=== PATIENT | male | born 1950 | race Caucasian/White ===

== ENCOUNTER 2018-08-26 13:06 | Inpatient (IN) | payer OTHER, MEDICARE ==
[2018-08-26] VITALS (12 sets, daily range): BP systolic 83–107; BP diastolic 41–69
[~2018-08-26] VITALS: Ht 180.3 cm; Wt 108.2 kg
--- NOTE | ~2018-08-26 | EKG ---
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
[~2018-08-26 13:06] MED LIST: ASPIR LOW81 MG PO; CRESTOR20 M1 PO; DILT-XR120 MG PO; ELIQUIS5 M1 PO; FUROSEMIDE40 MG PO; LOPRESSOR50 M1 PO; LORATADINE10 M3 PO; Nystatin 100,000 UNI PO; OMEPRAZOLE D/R20 MG PO; PREDNISONE10 MG PO; SOTALOL HCL80 MG PO; SYMB160 INH; VITAMIN D-32000 UNIT PO; amox-clav
[2018-08-26 13:38] LABS: BASO % 0.3 % (0.0-1.0); EOS % 0.3 % (1.0-4.0); HEMATOCRIT 43.9 % (42.0-52.0); LYMPH # 4.7 10*3/uL (1.3-4.4); LYMPH % 37.1 % (27.0-41.0); MEAN CELL VOLUME 97.6 fl (80.0-94.0); MEAN CORPUSCULAR HGB 33.3 pg (27.0-31.0); MEAN CORPUSCULAR HGB CONC 34.2 g/dl (33.0-37.0); MEAN PLATELET VOLUME 9.9 fl (9.6-12.3); MONO % 7.8 % (3.0-9.0); NEUT # 6.8 10*3/uL (2.3-7.9); NEUT % 53.6 % (47.0-73.0); PLATELET COUNT AUTOMATED 193 10*3/uL (130-400); RED CELL DISTRI WIDTH 14.8 % (0-14.5); WHITE BLOOD COUNT 12.7 10*3/uL (4.8-10.8)
[2018-08-26 13:47] LABS: ACT PARTIAL THROMBO TIME 22.7 SECONDS (20.8-31.5)
[2018-08-26 13:53] LABS: ALBUMIN 2.8 gm/dl (3.1-4.5); ALKALINE PHOSPHATASE 79 U/L (45-117); BUN 13 mg/dl (7-24); CHLORIDE 104 mmol/L (98-107); CREATININE 1.13 mg/dL (0.70-1.30); LIPASE 103 U/L (73-393); SGOT/AST 37 IU/L (3-35); SGPT/ALT 50 U/L (12-78); SODIUM 136 mmol/L (136-145); TOTAL PROTEIN 6.9 gm/dL (6.4-8.2); TROPONIN I 0.018 ng/ml (<0.045)
[2018-08-26 13:54] LABS: POTASSIUM 4.5 mmol/L (3.5-5.1)
[2018-08-26] MEDS ORDERED: VIT D3 PO (17:26)
== END 2018-08-26 21:04 | disposition short-term general hospital (02) | DRG 309 ==
LOC: ED 13:06 → EDHOLD 14:43 → 5E 14:43
PROVIDERS: Emergency Medicine
DX: I48.0 Paroxysmal atrial fibrillation (principal); D68.69 Other thrombophilia; I50.32 Chronic diastolic (congestive) heart failure; C34.92 Malignant neoplasm of unspecified part of left bronchus or lung; E44.0 Moderate protein-calorie malnutrition; E87.2 Acidosis; I25.10 Atherosclerotic heart disease of native coronary artery without angina pectoris; I11.0 Hypertensive heart disease with heart failure; E78.5 Hyperlipidemia, unspecified; E55.9 Vitamin D deficiency, unspecified; E66.9 Obesity, unspecified; D72.829 Elevated white blood cell count, unspecified; D75.89 Other specified diseases of blood and blood-forming organs; E11.65 Type 2 diabetes mellitus with hyperglycemia; K14.0 Glossitis; Z95.5 Presence of coronary angioplasty implant and graft; Z87.891 Personal history of nicotine dependence; Z82.49 Family history of ischemic heart disease and other diseases of the circulatory system; Z80.8 Family history of malignant neoplasm of other organs or systems; Z79.899 Other long term (current) drug therapy; Z68.34 Body mass index [BMI] 34.0-34.9, adult

== ENCOUNTER → 2020-07-08 | Outpatient (CLI) | payer MEDICARE ==
[~2020-07-08] MED LIST changes: +ASPIRIN ADULT L81 M1 PO; +DOCUSATE SODIU100 M2 PO; +GAS RELIEF 8080 MG PO; +KEYTRUDA100 MG/4 M IV; +METOPROLOL SUC100 M1 PO; +VIT D3 PO
== END | disposition home or self-care (01) ==
LOC: US 14:21
PROVIDERS: ATTEND Internal Medicine Cardiovascular Disease
DX: I65.23 Occlusion and stenosis of bilateral carotid arteries (principal); H57.9 Unspecified disorder of eye and adnexa

== ENCOUNTER 2021-01-10 08:57 | Inpatient (IN) | payer OTHER ==
[~2021-01-10] VITALS: Ht 177.8 cm; Wt 93.6 kg
[2021-01-10 09:09] VITALS: BP 118/76
[2021-01-10 09:26] LABS: HEMATOCRIT 33.8 % (42.0-52.0); MEAN CELL VOLUME 88.5 fl (80.0-94.0); MEAN CORPUSCULAR HGB CONC 30.5 g/dl (33.0-37.0); NUCLEATED RED BLOOD CELL 0.4 10*3/uL (0.0-0.0); NUCLEATED RED BLOOD CELL 6.7 % (0.0-0.0); PLATELET COUNT AUTOMATED 51 10*3/uL (130-400); RED BLOOD COUNT 3.82 10*6/uL (4.50-5.90); RED CELL DISTRI WIDTH 25.2 % (0-14.5); WHITE BLOOD COUNT 6.1 10*3/uL (4.8-10.8)
[2021-01-10 09:36] LABS: INTERNATIONAL NORM RATIO 1.1 (2.0-3.5)
[2021-01-10 09:41] LABS: ALBUMIN 3.2 gm/dl (3.1-4.5); ALKALINE PHOSPHATASE 76 U/L (45-117); BUN 15 mg/dl (7-24); CHLORIDE 105 mmol/L (98-107); POTASSIUM 4.6 mmol/L (3.5-5.1); SGOT/AST 13 IU/L (3-35); SGPT/ALT 15 U/L (12-78); SODIUM 137 mmol/L (136-145); TOTAL PROTEIN 7.3 gm/dL (6.4-8.2)
[2021-01-10 10:01] LABS: TROPONIN I 0.052 ng/ml (<0.045)
[2021-01-10 10:06] LABS: BASOPHILS 1 % (0-1); TOTAL CELLS COUNTED 100 #CELLS
[2021-01-10 10:11] LABS: BLASTS 6 % (0-0); PLATELET SUFFICIENCY LOW (NORMAL); POLYCHROMASIA SLIGHT; SCHISTOCYTES FEW
[2021-01-10 11:50] VITALS: BP 120/82
[2021-01-10 11:55] VITALS: BP 96/48
[2021-01-10] MEDS ORDERED: PROAIR HFA8.5 GM INH (12:31)
[2021-01-10] MEDS ORDERED: PROVENTIL HFA6.7 GM INH (12:32)
[2021-01-10] MEDS ORDERED: LASIX40 MG PO (12:32)
[2021-01-10] MEDS ORDERED: MAGNESIUM OXID420 M1 PO (12:35)
[2021-01-10 16:00] VITALS: BP 95/64
[2021-01-10 20:00] VITALS: BP 96/53
[2021-01-11] VITALS (10 sets, daily range): BP systolic 85–102; BP diastolic 41–60
[2021-01-11 06:31] LABS: MEAN CELL VOLUME 88.8 fl (80.0-94.0); MEAN CORPUSCULAR HGB 27.3 pg (27.0-31.0); MEAN CORPUSCULAR HGB CONC 30.7 g/dl (33.0-37.0); NUCLEATED RED BLOOD CELL 0.2 10*3/uL (0.0-0.0); NUCLEATED RED BLOOD CELL 5.2 % (0.0-0.0); PLATELET COUNT AUTOMATED 37 10*3/uL (130-400); RED BLOOD COUNT 3.04 10*6/uL (4.50-5.90); RED CELL DISTRI WIDTH 25.4 % (0-14.5); WHITE BLOOD COUNT 3.8 10*3/uL (4.8-10.8)
[2021-01-11 07:05] LABS: ALBUMIN 2.7 gm/dl (3.1-4.5); ALKALINE PHOSPHATASE 64 U/L (45-117); BUN 13 mg/dl (7-24); CHLORIDE 104 mmol/L (98-107); CHOLESTEROL 84 mg/dL (<200); CREATININE 0.72 mg/dL (0.70-1.30); FREE T4 0.91 ng/dl (0.76-1.46); HDL CHOLESTEROL 39 mg/dl (40-60); LDL CHOLESTEROL 25 mg/dL (9-159); POTASSIUM 4.3 mmol/L (3.5-5.1); SGOT/AST 9 IU/L (3-35); SGPT/ALT 13 U/L (12-78); SODIUM 137 mmol/L (136-145); TOTAL PROTEIN 6.3 gm/dL (6.4-8.2); TRIGLYCERIDES 100 mg/dl (<150); VLDL CHOLESTEROL 20 mg/dL (6-40)
[2021-01-11 07:30] LABS: ATYPICAL LYMPHS 2 % (0-0); TOTAL CELLS COUNTED 100 #CELLS
[2021-01-11 07:31] LABS: BLASTS 4 % (0-0); OVALOCYTES FEW; POLYCHROMASIA SLIGHT; SCHISTOCYTES FEW
[2021-01-11 07:32] LABS: PLATELET SUFFICIENCY LOW (NORMAL)
[2021-01-11 08:38] LABS: VITAMIN D, 25-HYDROXY 44.4 ng/mL (30-100)
[2021-01-11 15:50] LABS: HEMATOCRIT 26.8 % (42.0-52.0); MEAN CELL VOLUME 88.4 fl (80.0-94.0); MEAN CORPUSCULAR HGB 27.4 pg (27.0-31.0); MEAN PLATELET VOLUME 9.5 fl (9.6-12.3); NUCLEATED RED BLOOD CELL 0.2 10*3/uL (0.0-0.0); NUCLEATED RED BLOOD CELL 4.1 % (0.0-0.0); RED BLOOD COUNT 3.03 10*6/uL (4.50-5.90); RED CELL DISTRI WIDTH 25.5 % (0-14.5); WHITE BLOOD COUNT 4.4 10*3/uL (4.8-10.8)
[2021-01-11 15:53] LABS: PLATELET COUNT AUTOMATED 70 10*3/uL (130-400)
[2021-01-11 16:35] LABS: ATYPICAL LYMPHS 3 % (0-0); TOTAL CELLS COUNTED 100 #CELLS
[2021-01-11 16:38] LABS: BLASTS 4 % (0-0); BURR CELLS FEW; OVALOCYTES FEW; PLATELET SUFFICIENCY LOW (NORMAL)
[2021-01-12] VITALS (12 sets, daily range): BP systolic 90–109; BP diastolic 38–68
[2021-01-12 01:59] LABS: HEMATOCRIT 25.4 % (42.0-52.0); MEAN CELL VOLUME 89.4 fl (80.0-94.0); MEAN CORPUSCULAR HGB 27.5 pg (27.0-31.0); MEAN CORPUSCULAR HGB CONC 30.7 g/dl (33.0-37.0); MEAN PLATELET VOLUME 9.2 fl (9.6-12.3); NUCLEATED RED BLOOD CELL 0.2 10*3/uL (0.0-0.0); NUCLEATED RED BLOOD CELL 5.2 % (0.0-0.0); PLATELET COUNT AUTOMATED 59 10*3/uL (130-400); RED BLOOD COUNT 2.84 10*6/uL (4.50-5.90); RED CELL DISTRI WIDTH 25.6 % (0-14.5); WHITE BLOOD COUNT 3.8 10*3/uL (4.8-10.8)
[2021-01-12 02:30] LABS: ATYPICAL LYMPHS 4 % (0-0); OVALOCYTES FEW; PLATELET SUFFICIENCY LOW (NORMAL); SCHISTOCYTES FEW; TOTAL CELLS COUNTED 100 #CELLS
[2021-01-12 06:12] LABS: BUN 11 mg/dl (7-24); CHLORIDE 103 mmol/L (98-107); CREATININE 0.74 mg/dL (0.70-1.30); POTASSIUM 3.8 mmol/L (3.5-5.1); SODIUM 137 mmol/L (136-145)
[2021-01-12 06:30] LABS: HEMATOCRIT 24.9 % (42.0-52.0); MEAN CELL VOLUME 89.6 fl (80.0-94.0); MEAN CORPUSCULAR HGB CONC 30.1 g/dl (33.0-37.0); MEAN PLATELET VOLUME 10.1 fl (9.6-12.3); NUCLEATED RED BLOOD CELL 0.1 10*3/uL (0.0-0.0); NUCLEATED RED BLOOD CELL 3.7 % (0.0-0.0); RED BLOOD COUNT 2.78 10*6/uL (4.50-5.90); RED CELL DISTRI WIDTH 25.5 % (0-14.5); WHITE BLOOD COUNT 3.8 10*3/uL (4.8-10.8)
[2021-01-12 06:34] LABS: PLATELET COUNT AUTOMATED 96 10*3/uL (130-400)
[2021-01-12 07:11] LABS: ATYPICAL LYMPHS 3 % (0-0); BASOPHILS 2 % (0-1); TOTAL CELLS COUNTED 100 #CELLS
[2021-01-12 07:12] LABS: BLASTS 4 % (0-0); PLATELET SUFFICIENCY LOW (NORMAL); POLYCHROMASIA SLIGHT; SCHISTOCYTES FEW
[2021-01-12 07:13] LABS: ACANTHOCYTES FEW; OVALOCYTES FEW; ROULEAUX SLIGHT
[2021-01-12 13:53] LABS: BODY FLUID WBC 163 /uL
[2021-01-13] VITALS: BP 114/43
[2021-01-13 06:31] LABS: HEMATOCRIT 27.3 % (42.0-52.0); MEAN CELL VOLUME 89.2 fl (80.0-94.0); MEAN CORPUSCULAR HGB 26.8 pg (27.0-31.0); NUCLEATED RED BLOOD CELL 0.2 10*3/uL (0.0-0.0); NUCLEATED RED BLOOD CELL 5.3 % (0.0-0.0); PLATELET COUNT AUTOMATED 83 10*3/uL (130-400); RED BLOOD COUNT 3.06 10*6/uL (4.50-5.90); RED CELL DISTRI WIDTH 26.2 % (0-14.5)
[2021-01-13 06:48] LABS: ALBUMIN 2.6 gm/dl (3.1-4.5); BUN 12 mg/dl (7-24); CHLORIDE 104 mmol/L (98-107); SODIUM 136 mmol/L (136-145)
[2021-01-13 06:52] LABS: ALKALINE PHOSPHATASE 70 U/L (45-117); CREATININE 0.67 mg/dL (0.70-1.30); SGOT/AST 10 IU/L (3-35); SGPT/ALT 12 U/L (12-78)
[2021-01-13 07:39] LABS: ACANTHOCYTES FEW; ATYPICAL LYMPHS 4 % (0-0); BLASTS 4 % (0-0); PLATELET SUFFICIENCY LOW (NORMAL); POLYCHROMASIA SLIGHT; TOTAL CELLS COUNTED 100 #CELLS
[2021-01-13 07:40] LABS: OVALOCYTES FEW; ROULEAUX SLIGHT; SCHISTOCYTES FEW
[2021-01-13 08:47] LABS: BF LYMPHOCYTES 76 %; BF MACROPHAGES 12 %; BF MESOTHELIALS 11 %; BF NEUTROPHILS 1 %
[2021-01-13 12:00] VITALS: BP 119/62
[2021-01-13 16:00] VITALS: BP 103/80
[2021-01-13 20:00] VITALS: BP 99/56
[2021-01-14] VITALS (7 sets, daily range): BP systolic 81–110; BP diastolic 36–55
[2021-01-15] VITALS: BP 97/47
[2021-01-15 05:58] LABS: HEMATOCRIT 25.4 % (42.0-52.0); MEAN CELL VOLUME 91.7 fl (80.0-94.0); MEAN CORPUSCULAR HGB 27.1 pg (27.0-31.0); MEAN CORPUSCULAR HGB CONC 29.5 g/dl (33.0-37.0); NUCLEATED RED BLOOD CELL 0.2 10*3/uL (0.0-0.0); NUCLEATED RED BLOOD CELL 6.2 % (0.0-0.0); RED BLOOD COUNT 2.77 10*6/uL (4.50-5.90); RED CELL DISTRI WIDTH 26.1 % (0-14.5); WHITE BLOOD COUNT 3.9 10*3/uL (4.8-10.8)
[2021-01-15 06:01] LABS: PLATELET COUNT AUTOMATED 52 10*3/uL (130-400)
[2021-01-15 06:02] LABS: ALBUMIN 2.4 gm/dl (3.1-4.5); BUN 8 mg/dl (7-24); CHLORIDE 105 mmol/L (98-107); CREATININE 0.72 mg/dL (0.70-1.30); POTASSIUM 4.4 mmol/L (3.5-5.1); SGOT/AST 12 IU/L (3-35); SGPT/ALT 12 U/L (12-78); SODIUM 136 mmol/L (136-145); TOTAL PROTEIN 5.8 gm/dL (6.4-8.2)
[2021-01-15 06:05] LABS: ALKALINE PHOSPHATASE 66 U/L (45-117)
[2021-01-15 06:56] LABS: TOTAL CELLS COUNTED 100 #CELLS
[2021-01-15 07:00] LABS: BLASTS 4 % (0-0); PLATELET SUFFICIENCY LOW (NORMAL); POLYCHROMASIA SLIGHT; SCHISTOCYTES FEW
[2021-01-15 07:01] LABS: OVALOCYTES MODERATE
[2021-01-15 08:00] VITALS: BP 118/54
[2021-01-15 12:00] VITALS: BP 113/50
[2021-01-15 16:00] VITALS: BP 134/60
[2021-01-15 20:00] VITALS: BP 88/48
[2021-01-16] VITALS: BP 91/41
[2021-01-16 08:00] VITALS: BP 95/40
== END 2021-01-16 13:58 | disposition home health service (06) | DRG 187 ==
LOC: ED 08:57 → EDHOLD 10:36 → 5E 10:36
PROVIDERS: Emergency Medicine; Internal Medicine; Registered Nurse; ADMIT Family Medicine; ATTEND Family Medicine
PROC: 30233R1 Transfusion of Nonautologous Platelets into Peripheral Vein, Percutaneous Approach (ICD-10-PCS; 2021-01-11)
PROC: 0W9B30Z Drainage of Left Pleural Cavity with Drainage Device, Percutaneous Approach (ICD-10-PCS; principal; 2021-01-12)
PROC: 4A02XM4 Measurement of Cardiac Total Activity, External Approach (ICD-10-PCS; 2021-01-13)
PROC: 3E073KZ Introduction of Other Diagnostic Substance into Coronary Artery, Percutaneous Approach (ICD-10-PCS; 2021-01-13)
DX: J91.8 Pleural effusion in other conditions classified elsewhere (principal); C34.92 Malignant neoplasm of unspecified part of left bronchus or lung; E44.0 Moderate protein-calorie malnutrition; I50.32 Chronic diastolic (congestive) heart failure; D61.818 Other pancytopenia; J98.19 Other pulmonary collapse; D68.59 Other primary thrombophilia; I48.0 Paroxysmal atrial fibrillation; R91.8 Other nonspecific abnormal finding of lung field; I11.0 Hypertensive heart disease with heart failure; I25.10 Atherosclerotic heart disease of native coronary artery without angina pectoris; F32.9 Major depressive disorder, single episode, unspecified; F43.20 Adjustment disorder, unspecified; E11.9 Type 2 diabetes mellitus without complications; E78.2 Mixed hyperlipidemia; I95.9 Hypotension, unspecified; Z68.29 Body mass index [BMI] 29.0-29.9, adult; Z87.891 Personal history of nicotine dependence; Z79.899 Other long term (current) drug therapy; Z82.49 Family history of ischemic heart disease and other diseases of the circulatory system; Z79.51 Long term (current) use of inhaled steroids; Z95.5 Presence of coronary angioplasty implant and graft

== ENCOUNTER 2021-01-22 15:04 | Inpatient (IN) | payer MEDICARE ==
[~2021-01-22] VITALS: Ht 177.8 cm; Wt 88.6 kg
[2021-01-22] VITALS (7 sets, daily range): BP systolic 84–111; BP diastolic 40–59
[~2021-01-22 15:04] MED LIST changes: +LASIX40 MG PO; +MAGNESIUM OXID420 M1 PO; +PROAIR HFA8.5 GM INH; +PROVENTIL HFA6.7 GM INH
[2021-01-22 15:36] LABS: HEMATOCRIT 27.2 % (42.0-52.0); MEAN CELL VOLUME 90.1 fl (80.0-94.0); MEAN CORPUSCULAR HGB 27.2 pg (27.0-31.0); MEAN CORPUSCULAR HGB CONC 30.1 g/dl (33.0-37.0); NUCLEATED RED BLOOD CELL 0.5 10*3/uL (0.0-0.0); NUCLEATED RED BLOOD CELL 10.8 % (0.0-0.0); PLATELET COUNT AUTOMATED 44 10*3/uL (130-400); RED BLOOD COUNT 3.02 10*6/uL (4.50-5.90); RED CELL DISTRI WIDTH 26.9 % (0-14.5); WHITE BLOOD COUNT 4.7 10*3/uL (4.8-10.8)
[2021-01-22 15:53] LABS: ALBUMIN 2.8 gm/dl (3.1-4.5); ALKALINE PHOSPHATASE 68 U/L (45-117); BUN 12 mg/dl (7-24); CHLORIDE 102 mmol/L (98-107); CREATININE 1.11 mg/dL (0.70-1.30); POTASSIUM 3.4 mmol/L (3.5-5.1); SGOT/AST 14 IU/L (3-35); SGPT/ALT 13 U/L (12-78); SODIUM 135 mmol/L (136-145); TOTAL PROTEIN 7.4 gm/dL (6.4-8.2); TROPONIN I 0.021 ng/ml (<0.045)
[2021-01-22 15:57] LABS: BASOPHILS 1 % (0-1); TOTAL CELLS COUNTED 100 #CELLS
[2021-01-22 15:58] LABS: ACT PARTIAL THROMBO TIME 31.9 SECONDS (20.0-32.1); INTERNATIONAL NORM RATIO 1.3 (2.0-3.5)
[2021-01-22 15:59] LABS: BLASTS 6 % (0-0)
[2021-01-22 16:00] LABS: OVALOCYTES FEW; PLATELET SUFFICIENCY LOW (NORMAL)
[2021-01-23] VITALS (96 sets, daily range): BP systolic 77–120; BP diastolic 32–75
[2021-01-23 06:08] LABS: ALBUMIN 2.2 gm/dl (3.1-4.5); ALKALINE PHOSPHATASE 53 U/L (45-117); BUN 12 mg/dl (7-24); CHLORIDE 104 mmol/L (98-107); CREATININE 0.81 mg/dL (0.70-1.30); POTASSIUM 2.8 mmol/L (3.5-5.1); SGOT/AST 12 IU/L (3-35); SGPT/ALT 8 U/L (12-78); SODIUM 136 mmol/L (136-145); TOTAL PROTEIN 6.1 gm/dL (6.4-8.2)
[2021-01-23 06:09] LABS: MEAN CELL VOLUME 89.5 fl (80.0-94.0); MEAN CORPUSCULAR HGB 27.6 pg (27.0-31.0); MEAN CORPUSCULAR HGB CONC 30.9 g/dl (33.0-37.0); NUCLEATED RED BLOOD CELL 0.3 10*3/uL (0.0-0.0); NUCLEATED RED BLOOD CELL 6.2 % (0.0-0.0); PLATELET COUNT AUTOMATED 31 10*3/uL (130-400); RED BLOOD COUNT 2.28 10*6/uL (4.50-5.90); RED CELL DISTRI WIDTH 26.7 % (0-14.5)
[2021-01-23 06:15] LABS: HEMATOCRIT 20.4 % (42.0-52.0)
[2021-01-23 07:12] LABS: ATYPICAL LYMPHS 11 % (0-0); BASOPHILS 1 % (0-1); BLASTS 7 % (0-0); SCHISTOCYTES FEW; TOTAL CELLS COUNTED 100 #CELLS
[2021-01-23 07:13] LABS: ACANTHOCYTES FEW; OVALOCYTES FEW; PLATELET SUFFICIENCY LOW (NORMAL); POLYCHROMASIA SLIGHT; ROULEAUX SLIGHT
[2021-01-23 17:22] LABS: HEMATOCRIT 23.8 % (42.0-52.0); MEAN CELL VOLUME 90.5 fl (80.0-94.0); MEAN CORPUSCULAR HGB 27.4 pg (27.0-31.0); MEAN CORPUSCULAR HGB CONC 30.3 g/dl (33.0-37.0); NUCLEATED RED BLOOD CELL 0.3 10*3/uL (0.0-0.0); NUCLEATED RED BLOOD CELL 3.9 % (0.0-0.0); RED BLOOD COUNT 2.63 10*6/uL (4.50-5.90); RED CELL DISTRI WIDTH 24.6 % (0-14.5); WHITE BLOOD COUNT 6.4 10*3/uL (4.8-10.8)
[2021-01-23 17:35] LABS: ALBUMIN 2.3 gm/dl (3.1-4.5); ALKALINE PHOSPHATASE 56 U/L (45-117); BUN 10 mg/dl (7-24); CHLORIDE 104 mmol/L (98-107); CREATININE 0.82 mg/dL (0.70-1.30); POTASSIUM 3.6 mmol/L (3.5-5.1); SGOT/AST 20 IU/L (3-35); SGPT/ALT 12 U/L (12-78); SODIUM 136 mmol/L (136-145); TOTAL PROTEIN 6.1 gm/dL (6.4-8.2)
[2021-01-23 17:48] LABS: PLATELET COUNT AUTOMATED 43 10*3/uL (130-400)
[2021-01-23 17:55] LABS: TOTAL CELLS COUNTED 100 #CELLS
[2021-01-23 17:56] LABS: BURR CELLS FEW; PLATELET SUFFICIENCY LOW (NORMAL); POLYCHROMASIA SLIGHT
[2021-01-23 20:43] LABS: BILIRUBIN Negative (Negative); BLOOD 1+ (Negative); CLARITY Clear (Clear); COLOR Yellow (Yellow); GLUCOSE Negative (Negative); KETONE 1+ (Negative); LEUKO ESTERASE Negative (Negative); NITRITE Negative (Negative); PH 5.5 (4.5-8.0)
[2021-01-23 20:59] LABS: BACTERIA TRACE; EPITHELIAL CELLS 0-2; FINE GRANULAR CAST 0-2; HYALINE CAST 0-2; MUCOUS TRACE; WBC 0-2 wbc/hpf (0-5)
[2021-01-24] VITALS (95 sets, daily range): BP systolic 73–136; BP diastolic 35–86
[2021-01-24 05:29] LABS: ALBUMIN 2.5 gm/dl (3.1-4.5); ALKALINE PHOSPHATASE 54 U/L (45-117); BUN 7 mg/dl (7-24); CHLORIDE 103 mmol/L (98-107); CREATININE 0.67 mg/dL (0.70-1.30); POTASSIUM 3.3 mmol/L (3.5-5.1); SGOT/AST 13 IU/L (3-35); SGPT/ALT 14 U/L (12-78); SODIUM 135 mmol/L (136-145); TOTAL PROTEIN 6.3 gm/dL (6.4-8.2)
[2021-01-24 06:01] LABS: HEMATOCRIT 26.1 % (42.0-52.0); MEAN CELL VOLUME 88.5 fl (80.0-94.0); MEAN CORPUSCULAR HGB 28.1 pg (27.0-31.0); MEAN CORPUSCULAR HGB CONC 31.8 g/dl (33.0-37.0); NUCLEATED RED BLOOD CELL 0.2 10*3/uL (0.0-0.0); NUCLEATED RED BLOOD CELL 3.6 % (0.0-0.0); PLATELET COUNT AUTOMATED 33 10*3/uL (130-400); RED BLOOD COUNT 2.95 10*6/uL (4.50-5.90); RED CELL DISTRI WIDTH 23.4 % (0-14.5); WHITE BLOOD COUNT 5.9 10*3/uL (4.8-10.8)
[2021-01-24 07:16] LABS: ATYPICAL LYMPHS 2 % (0-0); BLASTS 15 % (0-0); PLATELET SUFFICIENCY LOW (NORMAL); SCHISTOCYTES FEW; TOTAL CELLS COUNTED 100 #CELLS
[2021-01-24 07:17] LABS: ACANTHOCYTES FEW
[2021-01-24 10:16] LABS: ATYPICAL LYMPHS 2 % (0-0)
[2021-01-24 10:17] LABS: BLASTS 10 % (0-0)
[2021-01-25] VITALS (96 sets, daily range): BP systolic 71–113; BP diastolic 31–68
[2021-01-25 06:05] LABS: CREATININE 1.64 mg/dL (0.70-1.30); POTASSIUM 3.5 mmol/L (3.5-5.1)
[2021-01-25 06:13] LABS: HEMATOCRIT 26.5 % (42.0-52.0); MEAN CELL VOLUME 89.5 fl (80.0-94.0); MEAN CORPUSCULAR HGB CONC 31.3 g/dl (33.0-37.0); NUCLEATED RED BLOOD CELL 0.2 10*3/uL (0.0-0.0); NUCLEATED RED BLOOD CELL 2.9 % (0.0-0.0); PLATELET COUNT AUTOMATED 37 10*3/uL (130-400); RED BLOOD COUNT 2.96 10*6/uL (4.50-5.90); RED CELL DISTRI WIDTH 23.3 % (0-14.5); WHITE BLOOD COUNT 8.3 10*3/uL (4.8-10.8)
[2021-01-25 07:25] LABS: ATYPICAL LYMPHS 6 % (0-0); TOTAL CELLS COUNTED 100 #CELLS
[2021-01-25 07:27] LABS: BLASTS 16 % (0-0); BURR CELLS FEW; POLYCHROMASIA SLIGHT
[2021-01-25 07:28] LABS: ACANTHOCYTES FEW; OVALOCYTES FEW; PLATELET SUFFICIENCY LOW (NORMAL); SCHISTOCYTES FEW
[2021-01-26] VITALS (66 sets, daily range): BP systolic 74–124; BP diastolic 32–72
[2021-01-26 06:09] LABS: MEAN CORPUSCULAR HGB CONC 31.1 g/dl (33.0-37.0); NUCLEATED RED BLOOD CELL 0.1 10*3/uL (0.0-0.0); NUCLEATED RED BLOOD CELL 1.7 % (0.0-0.0); RED CELL DISTRI WIDTH 23.2 % (0-14.5); WHITE BLOOD COUNT 8.3 10*3/uL (4.8-10.8)
[2021-01-26 06:15] LABS: CREATININE 2.29 mg/dL (0.70-1.30); PLATELET COUNT AUTOMATED 27 10*3/uL (130-400); POTASSIUM 3.6 mmol/L (3.5-5.1)
[2021-01-26 06:48] LABS: ATYPICAL LYMPHS 10 % (0-0); BLASTS 17 % (0-0); TOTAL CELLS COUNTED 100 #CELLS
[2021-01-26 06:49] LABS: ACANTHOCYTES FEW; OVALOCYTES FEW; PLATELET SUFFICIENCY LOW (NORMAL); POLYCHROMASIA SLIGHT; SCHISTOCYTES FEW
== END 2021-01-26 16:16 | disposition short-term general hospital (02) | DRG 871 ==
LOC: ED 15:04 → ICCU 16:46 → EDHOLD 16:46 → 4E 17:23 → ICCU 01-23 00:53
PROVIDERS: Emergency Medicine; Hospitalist; Internal Medicine; ADMIT Internal Medicine; ATTEND Internal Medicine
PROC: 30233K1 Transfusion of Nonautologous Frozen Plasma into Peripheral Vein, Percutaneous Approach (ICD-10-PCS; 2021-01-22)
PROC: 02HV33Z Insertion of Infusion Device into Superior Vena Cava, Percutaneous Approach (ICD-10-PCS; principal; 2021-01-23)
PROC: B548ZZA Ultrasonography of Superior Vena Cava, Guidance (ICD-10-PCS; 2021-01-23)
PROC: 30233N1 Transfusion of Nonautologous Red Blood Cells into Peripheral Vein, Percutaneous Approach (ICD-10-PCS; 2021-01-23)
PROC: 30233R1 Transfusion of Nonautologous Platelets into Peripheral Vein, Percutaneous Approach (ICD-10-PCS; 2021-01-23)
DX: A41.9 Sepsis, unspecified organism (principal); R65.21 Severe sepsis with septic shock; E43 Unspecified severe protein-calorie malnutrition; N17.1 Acute kidney failure with acute cortical necrosis; J18.9 Pneumonia, unspecified organism; E87.1 Hypo-osmolality and hyponatremia; K92.2 Gastrointestinal hemorrhage, unspecified; C95.00 Acute leukemia of unspecified cell type not having achieved remission; D68.9 Coagulation defect, unspecified; C34.92 Malignant neoplasm of unspecified part of left bronchus or lung; J91.0 Malignant pleural effusion; D61.818 Other pancytopenia; J44.0 Chronic obstructive pulmonary disease with (acute) lower respiratory infection; E86.0 Dehydration; I50.9 Heart failure, unspecified; I25.10 Atherosclerotic heart disease of native coronary artery without angina pectoris; R19.7 Diarrhea, unspecified; E87.6 Hypokalemia; E66.9 Obesity, unspecified; E11.65 Type 2 diabetes mellitus with hyperglycemia; K80.20 Calculus of gallbladder without cholecystitis without obstruction; I11.0 Hypertensive heart disease with heart failure; E78.5 Hyperlipidemia, unspecified; E55.9 Vitamin D deficiency, unspecified; I48.0 Paroxysmal atrial fibrillation; R53.1 Weakness; Z96.1 Presence of intraocular lens; Z79.01 Long term (current) use of anticoagulants; Z95.5 Presence of coronary angioplasty implant and graft; Z87.891 Personal history of nicotine dependence; Z82.49 Family history of ischemic heart disease and other diseases of the circulatory system; Z80.8 Family history of malignant neoplasm of other organs or systems; Z79.899 Other long term (current) drug therapy; Z98.49 Cataract extraction status, unspecified eye; Z68.28 Body mass index [BMI] 28.0-28.9, adult; Z20.822 Contact with and (suspected) exposure to COVID-19